=== PATIENT | female | born 1955 | race Two or more races ===

== ENCOUNTER 2019-01-05 11:01 | Emergency (ER) | payer OTHER, BC ==
[~2019-01-05] VITALS: Ht 162.6 cm; Wt 67.1 kg
[2019-01-05] MEDS ORDERED: XANAX1 MG (16:22)
== END 2019-01-05 16:44 | disposition home or self-care (01) ==
LOC: ER 11:01
DX: R07.89 Other chest pain (principal); F41.8 Other specified anxiety disorders